=== PATIENT | male | born 1970 | race Caucasian/White ===

== ENCOUNTER 2018-06-03 07:59 | Emergency (ER) | payer OTHER ==
[~2018-06-03] VITALS: Ht 175.3 cm; Wt 133.8 kg
[2018-06-03] MEDS ORDERED: ASPIR 8181 MG (08:08)
[2018-06-03] MEDS ORDERED: PANTOPRAZOLE SO20 MG (08:09)
[2018-06-03] MEDS ORDERED: COZAAR50 MG (08:09)
[2018-06-03] MEDS ORDERED: ZYRTEC10 M3 (08:10)
[2018-06-03] MEDS ORDERED: SIMVASTATIN5 MG (08:10)
== END 2018-06-03 13:18 | disposition home or self-care (01) ==
LOC: ER 07:59
DX: N20.0 Calculus of kidney (principal)